=== PATIENT | male | born 1985 | race Caucasian/White ===

== ENCOUNTER 2017-08-24 14:37 | Emergency (ER) | payer MEDICARE, MEDICAID ==
[~2017-08-24] VITALS: Ht 180.3 cm; Wt 78.4 kg
[2017-08-24 14:39] VITALS: BP 154/94
[2017-08-24] MEDS ORDERED: NS 500 ML IV ONE (15:45)
[2017-08-24 16:03] LABS: BASO % 0.4 % (0.0-1.0); IMMATURE GRANULOCYTE % 0.4 % (0-0); LYMPH # 2.6 10^3/uL (1.5-4.5); LYMPH % 24.1 % (24.0-44.0); MEAN CORPUSCULAR HEMOGLOBIN 30.7 pg (27.0-33.0); MEAN CORPUSCULAR HGB CONC 34.6 g/dl (32.0-36.5); MEAN CORPUSCULAR VOLUME 88.9 fl (80.0-96.0); MONO # 0.8 10^3/uL (0.0-0.8); MONO % 7.6 % (0.0-5.0); NEUTROPHILS # 7.2 10^3/uL (1.8-7.7); NEUTROPHILS % 67.5 % (36.0-66.0); PLATELET COUNT, AUTOMATED 307 10^3/uL (150-450); RED CELL DISTRIBUTION WIDTH 12.1 % (11.5-14.5); WHITE BLOOD COUNT 10.7 10^3/uL (4.0-10.0)
[2017-08-24 16:12] LABS: INR 1.04
--- NOTE | 2017-08-24 16:23 | REP ---
CT Head without contrast HISTORY: Syncope COMPARISON: None There is no intraparenchymal hemorrhage, acute infarct, mass or midline shift. The ventricular system is normal in appearance. There is no extra cerebral collection. There is no fracture. Mucosal thickening is present in the right sphenoid sinus. IMPRESSION: There is no intracranial lesion. Signed by Carlos Romero MD 08/24/2017 04:14 P
[2017-08-24 16:25] LABS: ALBUMIN 4.6 GM/DL (3.2-5.2); ALBUMIN/GLOBULIN RATIO 1.24 (1.00-1.93); ALKALINE PHOSPHATASE 119 U/L (45-117); ALT/SGPT 63 U/L (12-78); ANION GAP 9 MEQ/L (8-16); AST/SGOT 25 U/L (15-37); BILIRUBIN,DIRECT 0.3 MG/DL (0.0-0.2); BILIRUBIN,TOTAL 0.9 MG/DL (0.2-1.0); BLOOD UREA NITROGEN 14 MG/DL (7-18); CALCIUM LEVEL 9.8 MG/DL (8.5-10.1); CARBON DIOXIDE LEVEL 28 MEQ/L (21-32); CHLORIDE LEVEL 100 MEQ/L (98-107); CREATININE FOR GFR 1.07 MG/DL (0.70-1.30); GLOMERULAR FILTRATION RATE > 60.0 (>60); GLUCOSE, FASTING 86 MG/DL (70-105); POTASSIUM SERUM 3.4 MEQ/L (3.5-5.1); SODIUM LEVEL 137 MEQ/L (136-145); TOTAL PROTEIN 8.3 GM/DL (6.4-8.2)
--- NOTE | 2017-08-24 16:32 | REP ---
Chest x-ray: Two views. History: Chest pain . Comparison study: No comparisons . Findings: The lungs are well inflated and free of infiltrate. The pleural angles are sharp. The heart size is normal. Pulmonary vasculature is not increased. No significant bony abnormality is seen. Impression: Negative chest x-ray. Signed by Rocky Seth MD 08/24/2017 04:24 P
--- NOTE | 2017-08-24 17:06 | ECGEPIP ---
Stationary ECG Study [facility] - ED Test Date: 2017-08-24 Pat Name: LIEN PICKETT Department: Room: - Gender: M Executive Chairman: megha : 1985 Requested By: Yajaira Abdi Order Number: [id number] Reading MD: Kendell Valladares Measurements Intervals Calvin Rate: 79 P: 54 TN: 142 QRS: 48 QRSD: 93 T: 47 QT: 366 QTc: 422 Interpretive Statements SINUS RHYTHM INC. RBBB BENIGN EARLY REPOLARIZATION NO PRIORS Electronically Signed On 08-24-2017 17:06:28 EDT by Kendell Valladares
[2017-08-24 18:36] LABS: METHADONE URINE NEGATIVE (NEGATIVE)
== END 2017-08-24 19:22 | disposition home or self-care (01) ==
LOC: M ED 14:37
DX: R55 Syncope and collapse (principal); G43.909 Migraine, unspecified, not intractable, without status migrainosus; Z73.3 Stress, not elsewhere classified; H35.30 Unspecified macular degeneration; H35.53 Other dystrophies primarily involving the sensory retina